=== PATIENT | female | born 1980 | race Caucasian/White ===

== ENCOUNTER 2018-05-06 01:49 | Emergency (ER) | payer SELFPAY ==
[2018-05-06 01:55] VITALS: BP 116/77; PULSE 80; RESP 22; TEMP 98.3; O2SAT 99
[2018-05-06] MEDS ORDERED: Amoxicillin-Clav 500-125 mg Tab PO STA (02:37)
[2018-05-06] MEDS ORDERED: Neomycin/Polymyxin/Hydrocort Otic Soln BOTTLE AD STA (02:38)
[2018-05-06] MEDS ORDERED: Amoxicillin-Clav 875-125 mg Tab PO ONE (02:38)
--- NOTE | 2018-05-06 02:53 | C.PDOC ---
History Of Present Illness 37 year old female presents to the ED c/o left earache for the past 3 days. Patient states she had similar pain in her right ear previously which was self resolved. Patient denies fever, chills, ear discharge, nausea, vomit, headache, trauma. Time Seen by Provider: 05/06/18 02:27 Chief Complaint (Nursing): ENT Problem History Per: Patient History/Exam Limitations: None Onset/Duration Of Symptoms: Days (3) Current Symptoms Are (Timing): Still Present Quality (Ear): Pain W/Touch. denies: Discharge Severity: None Anticoagulant/Antiplatlet Use?: No Recent Aspirin Use: No Past Medical History Reviewed: Historical Data, Nursing Documentation, Vital Signs Vital Signs: Last Vital Signs Temp 98.3 F 05/06/18 02:01 Pulse 80 05/06/18 02:01 Resp 22 05/06/18 02:01 BP 116/77 05/06/18 02:01 Pulse Ox 99 05/06/18 02:58 - Medical History PMH: No Chronic Diseases Denies: Chronic Kidney Disease Surgical History: Cholecystectomy Family History: States: Unknown Family Hx - Social History Hx Tobacco Use: No Hx Alcohol Use: No Hx Substance Use: No - Immunization History Hx Tetanus Toxoid Vaccination: No Hx Influenza Vaccination: No Hx Pneumococcal Vaccination: No Review Of Systems Constitutional: Negative for: Fever, Chills ENT: Positive for: Ear Pain. Negative for: Ear Discharge, Nose Discharge, Nose Congestion, Throat Pain, Throat Swelling Respiratory: Negative for: Cough, Shortness of Breath Gastrointestinal: Negative for: Nausea, Vomiting Neurological: Negative for: Headache, Dizziness Physical Exam - Physical Exam Appears: Non-toxic, No Acute Distress Skin: Normal Color, Warm, Dry Head: Atraumatic, Normacephalic, No Swelling (facial) Eye(s): bilateral: Normal Inspection Ear(s): Left: Other (minimal swelling to left auricle with erythema of ear canal TM visualized and normal. Tender adenopathy pre auricular area), Right: Normal Nose: No Discharge Oral Mucosa: Moist Tongue: No Swelling Lips: No Swelling Throat: Normal, No Erythema Neck: Normal ROM, Supple, No Other (no neck swelling) Neurological/Psych: Oriented x3, Normal Speech Gait: Steady ED Course And Treatment O2 Sat by Pulse Oximetry: 99 (ON RA) Pulse Ox Interpretation: Normal Progress Note: Plan: - Augmentin 1 tab PO. - Cortisporin otic solution. On reassessment, patient is resting comfortably, and is in no acute distress. Patient was instructed to follow up with physician/clinic in 1-2 days for further evaluation. Disposition - Disposition Referrals: Osmin Preston MD [Staff Provider] - Disposition: HOME/ ROUTINE Disposition Time: 04:23 Condition: GOOD Additional Instructions: Take all meds as prescribed Follow up with PMD or ENT doctor Return to ER if worse Prescriptions: Amoxicillin/Clavulanate [Augmentin 500 MG-125 MG] 1 tab PO TID #20 tab Ibuprofen [Motrin] 600 mg PO Q6H #20 tab Neomycin/Polymyxin/Hydrocortis [Cortisporin Otic Susp] 3 drop TOP TID #1 bottle Instructions: Outer Ear Infection (DC) Forms: [employer] (Eritrean) Print Language: SALVADOREAN - Clinical Impression Clinical Impression: Otitis externa - 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 - Scribe Statement The provider has reviewed the documentation as recorded by the Scribe Charli Méndez All medical record entries made by the Scribe were at my direction and personally dictated by me. I have reviewed the chart and agree that the record accurately reflects my personal performance of the history, physical exam, medical decision making, and the department course for this patient. I have also personally directed, reviewed, and agree with the discharge instructions and disposition.
== END 2018-05-06 03:03 | disposition home or self-care (01) ==
LOC: C.ER 01:49
DX: H60.90 Unspecified otitis externa, unspecified ear (principal)